=== PATIENT | male | born 1955 | race Two or more races ===

== ENCOUNTER → 2022-10-23 | Outpatient (CLI) | payer OTHER ==
--- NOTE | 2022-10-25 15:44 | PE ---
EXAMINATION TYPE: PET CT fusion skull to thigh DATE OF EXAM: 10/23/2022 CLINICAL INDICATION:Male, 67 years old with history of R91.8; TECHNIQUE: Following the intravenous administration of 12.45 mCi of F-18 FDG, whole body images are performed from the skull base to the midthigh. Images are reviewed on the computer in the coronal, axial, and sagittal planes. Reconstructed rotating images are created on independent workstation and reviewed on the computer. A non-contrast CT is performed in conjunction with the PET scan. Glucose level 96 mg/dL COMPARISON: CT 09/27/2022, PET/CT None, FINDINGS: Mediastinal SUV mean is 1.0. Hepatic parenchyma SUV mean is 1.8. SKULL BASE AND NECK: No suspicious radiotracer activity. CHEST, MEDIASTINUM, AND HILAR REGION: * Right lower lobe posterior pulmonary nodule measuring 1.4 x 1.4 cm , previously 1.2 x 1.2 cm with spiculated borders may be mildly increased in size and max SUV 2.1 * No other suspicious areas of abnormal FDG activity within the thorax. ABDOMEN AND PELVIS: No suspicious radiotracer activity. OSSEOUS STRUCTURES: No suspicious radiotracer activity. OTHER CT: Atherosclerosis of the arterial vasculature including at the carotid bifurcations and coron andrés arteries. There is apical pleural scarring present. Mild centrilobular emphysema changes are pres ent throughout the lungs. There is a moderate hiatal hernia present. Small splenule is present. Scatt ered colonic diverticula are present. Fat-containing inguinal hernias. IMPRESSION: Right lower lobe FDG avid spiculated pulmonary nodule compatible with primary pulmonary malignancy. N o evidence for metastatic disease at this time.
== END | disposition home or self-care (01) ==
LOC: RADPETMAIN 13:57
PROVIDERS: ATTEND Physician Assistant
DX: R91.8 Other nonspecific abnormal finding of lung field (principal)
CPT/HCPCS: 78815; A9552

== ENCOUNTER 2022-12-10 10:09 | Day surgery (SDC) | payer OTHER ==
[~2022-12-10 10:09] MED LIST: LACTATED RINGERS 1,000 ML IV SCH
[2022-12-10] MEDS ORDERED: ONDANSETRON 4 MG/2 ML VIAL ONE (11:04)
[2022-12-10 11:12] LABS: Glucose,Whole Blood 112 mg/dL (70-110)
[2022-12-10] MEDS ORDERED: ONDANSETRON 4 MG/2 ML VIAL IVP ONE (11:12)
[2022-12-10] MEDS ORDERED: DEXAMETHASONE SOD PHOSPHATE 4 MG/ML 1 ML VIAL IVP ONE (11:13)
--- NOTE | 2022-12-10 12:25 | CT ---
EXAMINATION TYPE: CT chest wo con DATE OF EXAM: 12/10/2022 COMPARISON: 10/23/2022 HISTORY: pre-op bronch CT DLP: 223.4 mGycm. Automated Exposure Control for Dose Reduction was Utilized. TECHNIQUE: CT scan of the thorax is performed without IV contrast. FINDINGS: LUNGS: Biapical pleural thickening 1.2 cm calcification sinus changes. Subpleural nodule measuring 5. Calcified granuloma left upper lobe measuring 4 mm. There is a spiculated mass superior segment right lower lobe posteriorly measuring 1.5 x 1.2 cm. No pneumothorax or pleural effusion. No focal pneumonia. There is a 2 mm subpleural nodule left lower lobe axial image 243 MEDIASTINUM: Lack of IV contrast is noted to limit evaluation for mediastinal and especially hilar ad enopathy. There are no definitive greater than 1 cm hilar or mediastinal lymph nodes. No cardiomega ly or pericardial effusion is seen. Coronary artery calcification noted. Aortic root measures 3.5 cm. Atherosclerotic change of the aorta. OTHER: Hypertrophic degenerative changes in the spine.. IMPRESSION: 1. Persistent spiculated 1.5 cm mass superior segment right lower lobe peripheral based suspicious fo r malignancy. 2. Large hiatal hernia. 3. Moderate centrilobular emphysema.
[2022-12-10] MEDS ORDERED: GLYCOPYRROLATE 0.2 MG/ML 2 ML VIAL ONE (12:35)
[2022-12-10] MEDS ORDERED: PHENYLEPHRINE-0.9% NACL SYG 1,000 MCG/10 ML SYRINGE ONE (12:35)
[2022-12-10] MEDS ORDERED: ROCURONIUM 10 MG/ML (5 ML VIAL) IV ONE (12:35)
[2022-12-10] MEDS ORDERED: PROPOFOL 10 MG/ML 20 ML VIAL IV ONE (12:35)
[2022-12-10] MEDS ORDERED: NEOSTIGMINE 1 MG/ML 10 ML VIAL ONE (12:35)
[2022-12-10] MEDS ORDERED: MIDAZOLAM 2 MG/2 ML VIAL ONE (12:35)
[2022-12-10] MEDS ORDERED: fentaNYL (PF) 50 MCG/ML 2 ML AMP ONE (12:35)
--- NOTE | 2022-12-10 13:48 | P.PCN ---
Date of Procedure: 12/10/22 Operative Findings: Preoperative Diagnosis: Right lower lobe mass Postoperative Diagnosis: Right lower lobe mass No mediastinal lymphadenopathy on EBUS Procedure(s) Performed: Flexible bronchoscopy Robotic-assisted bronchoscopy and addition to radial ultrasound evaluation of the lung mass Robotic-assisted test monitor needle aspirate, transbronchial biopsies, transbronchial brushing of the right lower lobe mass in addition to a bronchioloalveolar lavage Endobronchial ultrasound Endobronchial ultrasound-guided Anesthesia: SHASHAA Surgeon: Paula Gonzales Estimated Blood Loss (ml): 0 Pathology: other Condition: stable Disposition: same day Operative Findings: A physical exam was performed. Informed consent was obtained from the patient after explaining all the risks (pneumothorax, life threatening bleeding, infection and adverse effects due to medications), benefits and alternatives to the procedure which the patient appeared to understand and so stated. The patient was connected to the monitoring devices. General anesthesia was induced and the patient was intubated by anesthesia. A final timeout was performed and the procedure confirmed by the attending staff bronchoscopist. The bronchoscope was inserted and the airway examined. The flexible bronchoscope was removed and the robotic bronchoscope was inserted. Registration was completed. I next guided the robotic bronchoscope using the navigation system into the right lower lobe posterior segment segment. Once in proper position, the bronchoscope was frozen. The radial EBUS probe was placed through the bronchoscope and confirmed abnormal u/s images vs normal lung. A needle was placed through the working channel and under fluoroscopic guidance, we sampled the area thought to have the mass twice. We then used a cloud biopsy pattern with ultrasound confirmation for 4 additional passes with the needle. U/S evaluation was then used to reconfirm location. Forceps were next introduced through working channel and extended the appropriate distance and 3 transbronchial biopsies were performed using fluoroscopic guidance. The u/s probe was then reinserted to confirm location. When confirmed this process was repeated for a total of 6 transbronchial biopsies. After reassessment with EBUS, a brush was placed through the extendable working channel for 1 pass with fluoroscopic guidance. U/S evaluation was then used to confirm location. 20ml of saline was then instilled into the area of the lesion. The robotic bronchoscope was removed and the airway inspected with a flexible bronchoscope and 10 ml of effluent from the BAL was collected. The flexible bronchoscope was removed and the EBUS-TBNA bronchoscope was used to intubate the pateint through the ETT. An ultrasound examination identified all major landmarks was completed.. The EBUS-TBNA scope was used to evaluate mediastinal lymphadenopathy. All of the mediastinal stitches were examined. There was no enlarged lymph nodes and all of the lymph nodes was identified were less than 5 mm in size. As such, no biopsies were obtained. FINDINGS: 1.The airways appeared normal 2 Successful navigation, ultrasonographic identification, and biopsies of right lower lobe mass 3.The EBUS view was (Concentric/Eccentric)}. RECOMMENDATIONS: Await pathology and cytology results The referring physician will be alerted to the results when available. The patient was advised to follow up with the referring physician with the biopsy results Patient will be called with results.
[2022-12-10 13:51] VITALS: TEMP 98.6
--- NOTE | 2022-12-10 14:14 | XR ---
EXAMINATION TYPE: XR chest 1V DATE OF EXAM: 12/10/2022 COMPARISON: NONE HISTORY: Postbiopsy TECHNIQUE: Single frontal view of the chest is obtained. FINDINGS: There is no focal air space opacity, pleural effusion, or pneumothorax seen. The cardiac silhouette size is within normal limits. The osseous structures are intact. Lower lobe mass not as well-seen on x-ray and CT scan. Calcified nodule left lung apex. IMPRESSION: No pneumothorax.
--- NOTE | 2022-12-10 14:28 | FL ---
EXAMINATION TYPE: FL bronchoscopy DATE OF EXAM: 12/10/2022 COMPARISON: NONE HISTORY: Pulmonary nodule TECHNIQUE: Fluoroscopy. FINDINGS: Fluoroscopic guidance was provided during procedure Total dose area product (DAP) in mGy*c m? (or similar): 0.89562. IMPRESSION: As Above.
[2022-12-10] MEDS ORDERED: IV FLUID CONTINUATION 800 ML IV ONE (14:34)
[2022-12-10 14:44] VITALS: RESP 16
[2022-12-10 15:18] VITALS: BP 169/92; PULSE 79
== END 2022-12-10 15:04 | disposition home or self-care (01) ==
LOC: ORWHC2ENDO 10:09
PROVIDERS: ATTEND Internal Medicine Critical Care Medicine
DX: C34.31 Malignant neoplasm of lower lobe, right bronchus or lung (principal); I10 Essential (primary) hypertension; J44.9 Chronic obstructive pulmonary disease, unspecified; F12.90 Cannabis use, unspecified, uncomplicated; Z79.899 Other long term (current) drug therapy
CPT/HCPCS: 88108; 88305; 88342; 88341; 71045; 71250; 31628; 31629; 31623; 31624; 31652; J2250; J1100; J2710; J2405; J3010; J2370; J2704

== ENCOUNTER → 2023-01-27 | Outpatient (CLI) | payer OTHER ==
[~2023-01-27] MED LIST changes: -LACTATED RINGERS 1,000 ML IV SCH; +REGADENOSON 0.4 MG/5 ML SYRINGE IV PRN
--- NOTE | 2023-01-27 10:58 | NM ---
EXAMINATION TYPE: NM stress lexiscan cardiolite DATE OF EXAM: 01/27/2023 COMPARISON: NONE CLINICAL INDICATION: Male, 67 years old with history of I10 Z01.818; TECHNIQUE: After the intravenous administration of 9.8 mCi Tc 99m Sestamibi - Cardiolite resting SPE CT images acquired 45 minutes post injection. The patient received 0.4mg Lexiscan, 25.0 mCi Tc 99m Sestamibi - Stress images obtained [address] injection FINDINGS: Review of stress and rest SPECT images demonstrates no distinct perfusion abnormality. Gated analysi s shows normal wall motion with an estimated left ventricular ejection fraction of 67 %. IMPRESSION: No scintigraphic evidence for reversible ischemia.
--- NOTE | 2023-01-27 12:50 | CA ---
Lexiscan Nuclear Stress Test Report Name: Rickey Centeno Exam Date: 01/27/2023 09:36 Exam Location: [place] Stress Ht (in): 67 Wt (lb): 130 BSA: 1.68 Ordering Phys: Ariel Gallego MD Referring Phys: ALEXANDER GALLEGO,, Technologist: Onofre Damon Age: 67 Gender: M : 1955 Procedure CPT: Indications: I10 Z01.818 ICD-10 Codes: Patient History: Medications: HYDROCODONE, LISINOPRIL Meds past 24 hrs: Pretest Chest Pain: STRESS TEST Lexiscan Protocol Exercise Duration (min:sec): 02:[address] Depressions (mm): Angina Score: Aguero Score: Resting HR (bpm): 76 Peak HR (bpm): 130 Resting BP (mmHg): 158 / 97 Peak BP (mmHg): 180 / 86 MPHR: 153 Target HR: 130 % MPHR: 85 METS: 1.0 Total Dose: Peak Dose: Atropine: Double Product: 13566 BP Response: Stress Termination: PROTOCOL COMPLETE Stress Symptoms: NO SYMPTOMS Stress Summary: ECG ANALYSIS Resting ECG: Stress ECG: CONCLUSIONS At baseline EKG showed normal sinus rhythm, normal axis, no significant ST or T wave abnormalities. Patient recieved IV infusion of Lexiscan 0.4mg and at peak infusion EKG showed no significant change from baseline. Conclusions: 1. Normal EKG response to Lexiscan infusion 2. Nuclear imaging to be reported separately. Dr. Yao Elizondo DO (Electronically Signed) Final Date: 27 January 2023 12:49
== END | disposition home or self-care (01) ==
LOC: RADNMMAIN 07:54
PROVIDERS: ATTEND Thoracic Surgery (Cardiothoracic Vascular Surgery)
DX: Z01.818 Encounter for other preprocedural examination (principal); I10 Essential (primary) hypertension
CPT/HCPCS: 93017; 78452; A9500; J2785

== ENCOUNTER → 2023-02-01 | Outpatient (CLI) | payer OTHER ==
[2023-02-01 14:46] LABS: INR 0.9 (<1.2); Partial Thromboplastin Time 22.5 sec (22.0-30.0); Prothrombin Time 9.6 sec (9.0-12.0)
[2023-02-01 20:13] LABS: Basophils % (A) 1.3 %; Eosinophils # (A) 0.13 X 10*3/uL (0.04-0.35); Eosinophils % (A) 1.7 %; HCT 44.9 % (39.6-50.0); HGB 15.3 d/dL (12.0-15.0); Lymphocytes # (A) 1.61 X 10*3/uL (0.90-5.00); Lymphocytes % (A) 20.7 %; MCH 34.5 pg (27.0-32.0); MCHC 34.1 d/dL (32.0-37.0); MCV 101.4 FL (80.0-97.0); Mean Platelet Volume 10.8 FL (9.5-12.2); Monocytes # (A) 0.73 X 10*3/uL (0.20-1.00); Monocytes % (A) 9.4 %; NRBC Per 100 WBC 0 X 10*3/uL (0.00-0.01); Neutrophils # (A) 5.18 X 10*3/uL (1.80-7.70); Neutrophils % (A) 66.6 %; Platelet Count 290 X 10*3/uL (140-440); RBC 4.43 X 10*6/uL (4.40-5.60); RDW 12.6 % (11.5-14.5); WBC 7.77 X 10*3/uL (4.50-10.00)
[2023-02-01 21:00] LABS: Blood Urea Nitrogen 9.1 mg/dL (9.0-27.0); Carbon Dioxide 23.2 mmol/L (21.6-31.8); Chloride 101 mmol/L (96-109); Glucose 104 mg/dL (70-110); Potassium 4.6 mmol/L (3.5-5.5); Sodium 139 mmol/L (135-145)
[2023-02-01 21:52] LABS: Appearance,Urine Clear (Clear); Bilirubin,Urine Negative (Negative); Blood,Urine Negative (Negative); Color,Urine Yellow (Yellow); Ketones,Urine Negative (Negative); Nitrite,Urine Negative (Negative); Specific Gravity,Urine 1.009 (1.001-1.030); Urobilinogen,Urine 0.2 E.U./DL
== END | disposition home or self-care (01) ==
LOC: LABPAT 13:58
PROVIDERS: ATTEND Thoracic Surgery (Cardiothoracic Vascular Surgery)
DX: Z01.812 Encounter for preprocedural laboratory examination (principal); Z51.81 Encounter for therapeutic drug level monitoring; C34.31 Malignant neoplasm of lower lobe, right bronchus or lung; E86.0 Dehydration; Z79.899 Other long term (current) drug therapy; R58 Hemorrhage, not elsewhere classified; R06.00 Dyspnea, unspecified
CPT/HCPCS: 36415; 80051; 81003; 82565; 82947; 84520; 85025; 85610; 85730; 87086; 93005

== ENCOUNTER 2023-02-03 09:40 | Inpatient (IN) | payer OTHER ==
[~2023-02-03 09:40] MED LIST changes: +DEXAMETHASONE SOD PHOSPHATE 4 MG/ML 1 ML VIAL IV ONE; +LACTATED RINGERS 1,000 ML IV SCH; +LIDOCAINE 1% (10MG/ML) FOR IV START INTRADERMA PRN; +ONDANSETRON 4 MG/2 ML VIAL IVP ONE; -REGADENOSON 0.4 MG/5 ML SYRINGE IV PRN; +droPERidol 5 MG/2 ML VIAL IVP ONE
[2023-02-03] MEDS ORDERED: MIDAZOLAM 2 MG/2 ML VIAL IVP ONE ×2 (11:09→11:31)
--- NOTE | 2023-02-03 11:53 | P.ANPRN ---
Procedure Note - Anesthesia - Nerve Block Performed Right Erector Spinae Single Time Out Performed: Yes Date of Procedure: 02/03/23 Procedure Start Time: 11:08 Procedure Stop Time: 11:14 Location of Patient: PreOp Indication: Acute Post-Operative Pain, Requested by Surgeon Sedation Type: Sedate with meaningful contact maintained Preparation: Sterile Prep Position: Prone Needle Types: Pajunk Needle Gauge: 21 Ultrasound used to visualize needle placement: Yes Ultrasound used to observe medication spread: Yes Blood Aspirated: No Pain Paresthesia on Injection Noted: No Resistance on Injection: Normal Image Stored and Saved: Yes Events: Uneventful and Well Tolerated (10.5% 15 mL plus normal saline 10 mL plus dexamethasone 4 mg given at T6)
--- NOTE | 2023-02-03 11:54 | P.ANPRN ---
Procedure Note - Anesthesia - Invasive Line Left Arterial Line Time Out Performed: Yes Date of Procedure: 02/03/23 Time of Procedure: 11:37 Location of Patient: PreOp Preparation: Sterile Prep Arterial Line Location: Radial Ultrasound Used: No Purpose - Visualization and Identification of Vasculature: No Image Stored and Saved: No Narrative: Central line placement per sterile protocol utilized.
[2023-02-03] MEDS ORDERED: LIDOCAINE 2% INJ 20 MG/ML (2 ML VIAL) ONE (12:25)
[2023-02-03] MEDS ORDERED: METOPROLOL TARTRATE 5 MG/5 ML VIAL IVP ONE (12:25)
[2023-02-03] MEDS ORDERED: ROCURONIUM 10 MG/ML (5 ML VIAL) IV ONE (12:25)
[2023-02-03] MEDS ORDERED: PROPOFOL 10 MG/ML 20 ML VIAL IV ONE (12:25)
[2023-02-03] MEDS ORDERED: GLYCOPYRROLATE 0.2 MG/ML 2 ML VIAL ONE (12:25)
[2023-02-03] MEDS ORDERED: ESMOLOL 100 MG/10 ML VIAL ONE (12:25)
[2023-02-03] MEDS ORDERED: fentaNYL (PF) 50 MCG/ML 2 ML AMP ONE (12:25)
[2023-02-03] MEDS ORDERED: PHENYLEPHRINE-0.9% NACL SYG 1,000 MCG/10 ML SYRINGE ONE (12:25)
[2023-02-03] MEDS ORDERED: HYDROmorphone (PF) 1 MG/ML ONE (12:25)
[2023-02-03] MEDS ORDERED: MIDAZOLAM 2 MG/2 ML VIAL ONE (12:25)
[2023-02-03] MEDS ORDERED: NEOSTIGMINE 1 MG/ML 10 ML VIAL ONE (12:25)
[2023-02-03] MEDS ORDERED: SODIUM CHLORIDE 0.9% (PF) 10 ML VIAL ONE (12:25)
[2023-02-03] MEDS ORDERED: ROPIVACAINE 5 MG/ML 30 ML VIAL ONE (12:25)
[2023-02-03] MEDS ORDERED: SUCCINYLCHOLINE CHLORIDE 200 MG/10 ML VIAL IV ONE (12:25)
[2023-02-03] MEDS ORDERED: DEXAMETHASONE SOD PHOSPHATE 4 MG/ML 1 ML VIAL ONE (12:25)
[2023-02-03] MEDS ORDERED: BUPIVACAINE (PF) 0.5% 30 ML VIAL SQ ONE ×3 (12:29)
[2023-02-03] MEDS ORDERED: LACTATED RINGERS 1,000 ML IV ONE ×2 (13:00→13:05)
--- NOTE | 2023-02-03 17:13 | P.OP ---
Date of Procedure: 02/03/23 Preoperative Diagnosis: Lung Cancer Postoperative Diagnosis: Same Procedure(s) Performed: 1. Bronchoscopy 2. Robotic assisted right thorascopic surgery with right lower lobectomy 3. Mediastinal lymph node dissection Anesthesia: JERZY Surgeon: Ariel Gallego Reviewer Sales #1: Christopher Singer Pathology: none sent (RLL, LN stations 4,10,11,7 and 8) Condition: stable Disposition: PACU Indications for Procedure: Mr Centeno is a 67 year-old male who is a smoker who was noted to have a lung nodule on a cxr done by his PCP at the [facility]. Camejo. Further work-up revealed a 1.5cm nodule on CT scan which was also FDG avid on PET/CT. EBUS with biopsy revealed adenocarcinoma. Mediastinum was clinically negative and he had adequate PFT's. I recommended lobectomy. Operative Findings: Lymph nodes stations 4, 7, 8, 10 and 11 harvested. Tumor somewhat central in the lower lobe. Description of Procedure: The patient underwent left radial arterial line placement in the pre-operative suite. He was brought back to the operating room and placed on the table in the supine position. He was intubated with a 39F left sided KATY which was confirmed with bronchoscopy. A diagnostic bronchoscopy was also performed which revealed no lesions or abnormalities in the entire tracheo-bronchial tree. There was minimal to no secretions. The patient was then positioned in the left lateral decubitus position and her right chest was prepped and draped in the usual sterile fashion. The double lumen tube position was once again checked using bronchoscopy. A time-out was performed and antibiotics were given. The right lung was isolated. We made a 1cm incision in the 9th intercostal space anterior axillary line. The 8mm trocar was inserted into the chest bluntly. The robotic camera was inserted and there was no injury to the lung and there was good lung isolation. We placed then placed 12mm trocars 10cm anteriorly and 10cm posteriorly in the 9th intercostal space. A 4th 8mm port was placed posteriorly in the 8th ICS posteriorly. We placed a 15mm business assistant port in between ports 1 and 2 10th ICS above the diaphragm. The Da Bebeto Xi robot was then docked. We then approached the fissure and performed some dissection along the inter-lobar fissure using the bipolar cautery. The pulmonary arterial plane was dissected out. Attention was then turned towards the inferior pulmonary ligament which was taken down using the bipolar cautery. This dissection was carried upward with the bipolar cautery posteriorly and anteriorly along the mediastinal pleura. Posteriorly we obtained level 8 and 7 lymph nodes. There was no discernable level 9 nodes. At this point, R4 node was taken above the azygous vein. I then turned my attention to the inferior pulmonary vein which was circumferentially dissected free and encircled with a vessel loop. The robotic white load stapler was fired across the vein. The 11 node was harvested at this time. Next, the bronchus to the lower lobe was circumferentially dissected away from the middle lobe bronchus, encircled with a vessel loop and stapled using the robotic green load. then encircled the anterior minor fissure above the IPV and in front of the on-going PA with a vessel loop. A robotic blue load was fired across the anterior fissure. At this point, the on-going pulmonary artery was dissected free, encircled and stapled using the robotic white load x 2. Lastly, the posterior fissure was completed using two firings of the robotic blue load. The level 10 node was harvested beneath the azygous vein. The lung was placed in a retrieval bag, and the right chest was irrigated with water and a leak test on the bronchus was performed which was negative. The robot was undocked, the specimen was removed from the chest cavity and a 28F chest tube was placed via the most anterior incision. All incisions were closed in layers and the patient was awaken from anesthesia and extubated.
[2023-02-03] MEDS: HYDROmorphone 0.5 MG/0.5 ML SYRINGE IVP PRN ×2 (17:31→17:46)
[2023-02-03] MEDS ORDERED: DEXTROSE 5%-0.45% NACL 1,000 ML IV SCH (17:42)
[2023-02-03] MEDS ORDERED: ACETAMINOPHEN TAB 325 MG TAB PO PRN (17:42)
[2023-02-03] MEDS ORDERED: ONDANSETRON 4 MG/2 ML VIAL IVP PRN (17:42)
[2023-02-03] MEDS ORDERED: IPRATROPIUM-ALBUTEROL 3 ML NEB IH PRN (17:42)
--- NOTE | 2023-02-03 17:46 | XR ---
EXAMINATION TYPE: XR chest 1V portable DATE OF EXAM: 02/03/2023 HISTORY: Status post lobectomy COMPARISON: 12/10/2022 TECHNIQUE: Single view of the chest is submitted. FINDINGS: Postsurgical changes of right-sided lobectomy with right-sided chest tube in place. Pleural parenchym al density seen at the right lung base. No sizable pneumothorax. Subcutaneous air along the lower rig ht chest wall. There is no evidence for focal infiltrate. The heart is stable. Hilar and mediastinal structures are within normal limits. Degenerative changes are seen of the dorsal spine. IMPRESSION: 1. Postoperative changes as discussed
[2023-02-03] MEDS ORDERED: LABETALOL SYRINGE 5 MG/ML IVP ONE (18:28)
[2023-02-03] MEDS: KETOROLAC 15 MG/ML 1 ML VIAL IVP SCH ×2 (18:28→23:51)
[2023-02-03] MEDS: IPRATROPIUM-ALBUTEROL 3 ML NEB IH SCH (20:08)
[2023-02-03] MEDS: HYDROcodone/APAP 10-325MG 1 EACH TAB PO PRN (20:37)
[2023-02-03] MEDS: HEPARIN SODIUM,PORCINE/PF 5,000 UNIT/0.5 ML SYRINGE SQ SCH (23:51)
--- NOTE | 2023-02-04 00:59 | P.CNPUL ---
History of Present Illness Consult date: 02/04/23 Requesting physician: [facility] Reason for consult: other (post right lower lobectomy) Chief complaint: right lower lobe pulmonary adenocarcinoma History of present illness: I am seeing this patient in new consultation today 02/04/2023 status postoperative day #1 following a right lower lobectomy and mediastinal lymph node dissection. Patient is a 67-year-old white male with past medical history significant for recent diagnosis of right lower lobe adenocarcinoma, COPD, recent ex-smoker and over a 45 pack-year smoking history, hypertension, and osteoarthritis. The patient normally follows with the [facility]. He had a low-dose lung CT back in September, which showed a concerning 1.5 centimeter spiculated nodule in the posterior right mid lung. A follow-up PET scan demonstrated a right lower lobe 1.4 cm nodule with increased FDG uptake. No evidence of metastatic disease at that time. This was followed by a navigational bronchoscopy and biopsy of the nodule, on 12/10/2022, which was consistent with adenocarcinoma. In the absence of significant mediastinal lymphadenopathy, no mediastinal lymph node biopsies were obtained at that time. The patient was referred to cardiothoracic, who scheduled a right lower lobectomy yesterday. Preoperative PFT showed minimal airway obstruction with an FEV1 76% of predicted and a moderate to severely reduced DLCO at 48% of predicted. The patient underwent successful robotic-assisted right lower lobectomy and mediastinal lymph node dissection yesterday. He is currently sitting up in bed, on 2 L nasal cannula, in no acute distress. Right chest tube has 70 ML's of serosanguineous output. There is a minimal air leak observed with coughing. The chest tube is to suction. Postoperative chest x-ray shows postsurgical changes and a right- sided chest tube in place. No sizable pneumothorax appreciated. There is minimal subcutaneous air along the right lower chest wall. Incentive spirometer is at bedside, the patient achieves 750-1000 ML's with encouragement. Pain is reportedly well controlled. Preoperative labs were unremarkable. Vital signs are stable. Patient is being monitored on the cardiac stepdown unit. Review of Systems REVIEW OF SYSTEMS: CONSTITUTIONAL: Denies any recent significant weight loss or weight gain. EYES: Denies change in vision. EARS, NOSE, MOUTH, THROAT: Denies headaches, denies sore throat. CARDIOVASCULAR: Denies palpitations or syncopal episodes. Admits postsurgical chest pain, especially with coughing and deep breathing RESPIRATORY: Denies shortness of breath, cough, congestion or hemoptysis. GASTROINTESTINAL: Denies change in appetite, abdominal pain, nausea and vomiting, or diarrhea GENITOURINARY: Denies hematuria, denies infections. MUSKULOSKELETAL: Denies pain, denies swelling. INTEGUMENTARY: Denies rash, denies eczema. NEUROLOGICAL: Denies recent memory loss, no recent seizure activity. PSYCHIATRIC: Denies anxiety, denies depression. HEMATOLOGIC/LYMPHATIC: Denies anemia, denies enlarged lymph node Past Medical History Past Medical History: Cancer, Hypertension, Musculoskeletal Disorder, Osteoarthritis (OA) Additional Past Medical History / Comment(s): new dx. lung cancer, emphysema, intermittent vertigo-seeing neuro for testing, neck & knee pain History of Any Multi-Drug Resistant Organisms: None Reported Past Surgical History: Hernia Repair, Tonsillectomy Additional Past Surgical History / Comment(s): darcy inguinal hernia, colonoscopy, recent bronchoscopy Past Anesthesia/Blood Transfusion Reactions: No Reported Reaction Smoking Status: Former smoker - Past Family History Father Additional Family Medical History / Comment(s): sepsis Mother Additional Family Medical History / Comment(s): poor circulation in legs lost toes Brother(s) Additional Family Medical History / Comment(s): leukemia from agent [place] Medications and Allergies Home Medications Medication Instructions Recorded Confirmed Type HYDROcodone/APAP 10-325MG [Baker 1 tab PO Q6HR PRN 12/08/22 01/29/23 History 10-325] Unk Wixela 1 puff INHALATION BID 12/08/22 01/29/23 History lisinopriL [Zestril] 10 mg PO DAILY 12/08/22 01/29/23 History Allergies Allergy/AdvReac Type Severity Reaction Status Date / Time No Known Allergies Allergy Verified 02/03/23 10:00 Physical Exam Vitals: Vital Signs Temp Pulse Resp BP BP BP Pulse Ox 02/03/23 20:00 98.1 F 88 16 151/89 99 02/03/23 19:14 97.8 F 92 18 155/90 180/100 97 02/03/23 18:48 160/82 02/03/23 18:45 159/83 02/03/23 18:40 74 16 149/90 100 02/03/23 18:20 79 16 179/90 100 02/03/23 18:05 85 16 172/94 100 02/03/23 17:49 74 16 168/90 100 02/03/23 17:34 73 16 178/91 99 02/03/23 17:19 76 16 169/92 99 02/03/23 17:04 97 F L 114 H 16 189/104 178/100 100 02/03/23 11:51 86 16 127/89 98 02/03/23 10:07 98.8 F 79 16 166/92 98 Intake and Output 02/03/23 02/03/23 02/04/23 14:59 22:59 06:59 Intake Total 2950 150 Output Total 50 1999 Balance 2900 -1850 Intake: IV 2950 150 Output: Urine 1999 Estimated Blood Loss 50 Other: Voiding Method Indwelling Catheter Weight 59.5 kg GENERAL EXAM: Alert, 67-year-old white male, comfortable in no apparent distress. HEAD: Normocephalic and atraumatic EYES: Normal reaction of pupils, equal size. NOSE: Clear with pink turbinates. THROAT: No erythema or exudates. NECK: No masses, no JVD. CHEST: No chest wall deformity. Right sided chest tube to suction LUNGS: Equal air entry with minimal wheezing and rhonchi. no crackles or focal dullness. on 2 L/m nasal cannula. No conversational dyspnea or accessory muscle use.. CVS: S1 and S2 normal with no audible murmur, regular rhythm. No extra heart sounds ABDOMEN: No hepatosplenomegaly, active bowel sounds, no guarding or rigidity. SPINE: No scoliosis or deformity SKIN: No rashes CENTRAL NERVOUS SYSTEM: No focal deficits, tone is normal in all 4 extremities. EXTREMITIES: There is no peripheral edema, clubbing, or cyanosis. Peripheral pulses are intact. Results - Diagnostic Findings Chest x-ray: image reviewed Assessment and Plan Assessment: Right lower lobe pulmonary adenocarcinoma status postoperative day #1 following a robotic-assisted right lower lobectomy and mediastinal lymph node dissection. Postoperative chest x-ray shows postsurgical changes and a right-sided chest tube in place. No sizable pneumothorax appreciated. There is minimal subcutaneous air along the right lower chest wall. Chronic obstructive pulmonary disease, normally maintained on a combination of Wixela and when necessary albuterol on an outpatient basis Acute hypoxemic respiratory failure, secondary to above, on 2 L/m nasal cannula Benign essential hypertension osteoarthritis ex-smoker, quitting 3 weeks ago, [id number] history plan: Patient's medications, labs, chest x-ray reviewed Continue supplemental oxygen Start patient on combination of Symbicort and when necessary Duo-nebs Right-sided chest tube with minimal air leak on coughing. Chest tube is to suction. Postoperative chest x-ray shows no sizable pneumothorax Encourage incentive spirometer Repeat chest x-ray in the morning Pain is reportedly well managed No evidence of metastasis on recent PET scan Lymph node cytology is pending Heparin for DVT prophylaxis Protonix for GI prophylaxis We will continue to follow I have personally seen and examined the patient, performed the documentation and the assessment and plan as written. Number of minutes spent on the visit:20 Time with Patient: Greater than 30
[2023-02-04] MEDS: KETOROLAC 15 MG/ML 1 ML VIAL IVP SCH ×4 (05:34→23:59)
[2023-02-04] MEDS: PANTOPRAZOLE 40 MG TABLET PO SCH (05:36)
--- NOTE | 2023-02-04 07:02 | XR ---
EXAMINATION TYPE: XR chest 1V DATE OF EXAM: 02/04/2023 6:37 AM COMPARISON: Chest radiographs from 02/03/2023 TECHNIQUE: XR chest 1V Portable AP radiograph of the chest. CLINICAL INDICATION:Male, 67 years old with history of post lobectomy; FINDINGS: Lungs/Pleura: Postsurgical changes of right-sided lobectomy. No sizable pneumothorax. No pleural effu matt or focal consolidation. Pulmonary vascularity: Unremarkable. Heart/mediastinum: Cardiomediastinal silhouette is unremarkable. Musculoskeletal: No acute osseous pathology. Other findings: Decreased right chest wall subcutaneous emphysema. Lines/Tubes: Stable position of right-sided chest tube with tip directed towards the apex. IMPRESSION: Postsurgical changes from right sided lobectomy with chest tube in place. No sizable pneumothorax.
[2023-02-04] MEDS ORDERED: LORazepam 2 MG/ML INJ IV PRN ×3 (07:44)
--- NOTE | 2023-02-04 07:48 | P.PN ---
Subjective Progress Note Date: 02/04/23 Principal diagnosis: Lung cancer, adenocarcinoma. History of previous tobacco dependence, COPD, hypertension, osteoarthritis, vertigo, daily EtOH use, occasional marijuana use POD #1 bronchoscopy, robotic-assisted right thoracoscopic surgery with right lower lobectomy, mediastinal lymph node dissection The patient was seen and examined sitting up in bed eating breakfast on the cardiac stepdown unit in no acute distress. States pain is mostly controlled with current medication regimen, denies shortness of breath. Remains in sinus rhythm, currently on 2 L nasal cannula with oxygen saturation in the high 90s. Right pleural chest tube present to continuous wall suction, no air leak present this morning. Chest x-ray reviewed. No other new concerns. Objective - Vital Signs Vital signs: Vital Signs Temp 98.9 F 02/04/23 04:00 Pulse 77 02/04/23 04:00 Resp 16 02/04/23 04:00 BP 114/69 02/04/23 04:00 Pulse Ox 98 02/04/23 04:00 FiO2 Intake & Output 02/03/23 02/04/23 02/04/23 18:59 06:59 18:59 Intake Total 3100 450 Output Total 2050 520 Balance 1050 -70 Weight 59.5 kg 59 kg Intake: IV 3100 Intake, IV Titration 450 Amount Dextrose 5%-0.45% NaCl 1, 400 000 ml @ 50 mls/hr IV . Q20H CODEY Rx#:[id number] ceFAZolin 2 gm In Sodium 50 Chloride 0.9% 50 ml @ 100 mls/hr IVPB Q8HR CODEY Rx# :[id number] Output: Chest Tube Drainage 220 Chest Tube Right Lateral 220 Chest Urine 2000 300 Estimated Blood Loss 50 Other: Voiding Method Indwelling Catheter - Exam CONSTITUTIONAL: Appears comfortable, cooperative, no acute distress RESPIRATORY: Lungs sounds diminished bilaterally. Respirations even, nonlabored. Currently on 2 L nasal cannula with oxygen saturation 98%. Able to achieve 1250 mL on incentive spirometry. Strong cough. CARDIOVASCULAR: S1, S2 present. Regular rate and rhythm, sinus rhythm on telemetry. Palpable peripheral pulses bilaterally. No edema present. No calf pain or tenderness noted. SCDs present. GASTROINTESTINAL: Abdomen soft, nontender, nondistended. Active bowel sounds present 4 quadrants. Tolerating diet. GENITOURINARY: Holt present draining clear, yellow urine INTEGUMENTARY: Skin is warm and dry with evidence of good perfusion NEUROLOGIC: Cranial nerves II through XII intact MUSKULOSKELETAL: Able to move all extremities, strength equal bilaterally, gait normal PSYCHIATRIC: Alert and oriented to person place and time, appropriate affect, intact judgment and insight INVASIVE LINES AND TUBES: Right pleural chest tube present and connected to wall suction, no air leaks present, 110 mL serosanguineous drainage overnight, 200 mL since surgery - Allied health notes Allied health notes reviewed: nursing - Imaging and Cardiology Chest x-ray: report reviewed, image reviewed Assessment and Plan Assessment: Lung cancer, adenocarcinoma, status post bronchoscopy, robotic-assisted right thoracoscopic surgery with right lower lobectomy, mediastinal lymph node dissection Previous tobacco dependence COPD, preoperative FEV1 76% of predicted, DLCO 48% of predicted Hypertension Osteoarthritis Vertigo Daily EtOH use Occasional marijuana use Plan: Pleural chest tube placed to waterseal, monitor for air leak Wean O2 as tolerated, encourage incentive spirometry use 10 times every hour while awake. Bronchodilators per pulmonology Increase activity as tolerated, out of bed for all meals Pain control with current medication regimen Will monitor daily chest x-rays Discontinue Holt catheter. May bladder scan and straight cath for greater than 300 mL residual Clinical recommendations to follow
[2023-02-04 08:02] LABS: Basophils % (A) 0 %; Eosinophils # (A) 0.1 k/uL (0-0.7); Eosinophils % (A) 1 %; HCT 39.7 % (39.0-53.0); HGB 13.3 gm/dL (13.0-17.5); Lymphocytes # (A) 1.2 k/uL (1.0-4.8); Lymphocytes % (A) 9 %; MCH 34.7 pg (25.0-35.0); MCHC 33.4 g/dL (31.0-37.0); MCV 103.9 fL (80.0-100.0); Macrocytosis Slight; Mean Platelet Volume 9.6; Monocytes # (A) 0.8 k/uL (0-1.0); Monocytes % (A) 6 %; Neutrophils # (A) 11.4 k/uL (1.3-7.7); Neutrophils % (A) 84 %; Platelet Count 224 k/uL (150-450); RBC 3.82 m/uL (4.30-5.90); RDW 12.1 % (11.5-15.5); WBC 13.5 k/uL (3.8-10.6)
[2023-02-04] MEDS: SYMBICORT 160-4.5 MCG INHALER INHALATION SCH ×2 (08:21→20:29)
[2023-02-04] MEDS: IPRATROPIUM-ALBUTEROL 3 ML NEB IH SCH ×4 (08:22→20:29)
[2023-02-04 08:52] LABS: African American GFR (CKD) >90 (>60 ml/min/1.73 sqM); Anion Gap 6 mmol/L; Blood Urea Nitrogen 12 mg/dL (9-20); Calcium 8.7 mg/dL (8.4-10.2); Carbon Dioxide 24 mmol/L (22-30); Chloride 102 mmol/L (98-107); Glucose 162 mg/dL (74-99); Non-African American GFR(CKD) >90 (>60 ml/min/1.73 sqM); Sodium 132 mmol/L (137-145)
[2023-02-04 08:53] LABS: Potassium 4.3 mmol/L (3.5-5.1)
[2023-02-04] MEDS: lisinopriL 10 MG TAB PO SCH (08:57)
[2023-02-04] MEDS: FOLIC ACID 1 MG TAB PO SCH (08:57)
[2023-02-04] MEDS: HEPARIN SODIUM,PORCINE/PF 5,000 UNIT/0.5 ML SYRINGE SQ SCH ×3 (08:57→23:59)
[2023-02-04] MEDS: HYDROcodone/APAP 10-325MG 1 EACH TAB PO PRN ×3 (08:57→22:12)
[2023-02-04] MEDS: MULTIVITAMINS, THERA 1 EACH TAB PO SCH (08:57)
[2023-02-05] MEDS: KETOROLAC 15 MG/ML 1 ML VIAL IVP SCH ×3 (06:24→17:41)
[2023-02-05] MEDS: PANTOPRAZOLE 40 MG TABLET PO SCH (06:25)
[2023-02-05] MEDS: HYDROcodone/APAP 10-325MG 1 EACH TAB PO PRN ×2 (07:40→21:57)
[2023-02-05] MEDS ORDERED: MAGNESIUM HYDROXIDE 2,400 MG/30 ML CUP PO STA (07:52)
--- NOTE | 2023-02-05 08:35 | XR ---
EXAMINATION TYPE: XR chest 2V DATE OF EXAM: 02/04/2023 COMPARISON: 02/04/2023 INDICATION: Lobectomy right side TECHNIQUE: Frontal and lateral views of the chest are obtained. FINDINGS: The heart size is normal. The pulmonary vasculature is normal. The lungs are clear. Right side chest tube is present. Small amount of subcutaneous emphysema is lat eral chest. No pneumothorax is evident. Some mild infiltrate may be to the right mid to lower lung fi eld IMPRESSION: 1. Suggestion of mild subsegmental atelectasis right mid to lower lung field. 2. Right side chest tube stable in position. No pneumothorax is evident.
[2023-02-05] MEDS: SYMBICORT 160-4.5 MCG INHALER INHALATION SCH ×2 (08:49→20:56)
[2023-02-05] MEDS: IPRATROPIUM-ALBUTEROL 3 ML NEB IH SCH ×4 (08:50→20:56)
--- NOTE | 2023-02-05 08:58 | P.PN ---
Subjective Progress Note Date: 02/05/23 Principal diagnosis: Lung cancer, adenocarcinoma. History of previous tobacco dependence, COPD, hypertension, osteoarthritis, vertigo, daily EtOH use, occasional marijuana use POD #2 bronchoscopy, robotic-assisted right thoracoscopic surgery with right lower lobectomy, mediastinal lymph node dissection The patient was seen and examined sitting up in a recliner on the cardiac stepdown unit in no acute distress. States pain is mostly controlled with current medication regimen, denies shortness of breath. Remains in sinus rhythm, currently on room air with oxygen saturation in the mid 90s. Right pleural chest tube [facility] to [facility], no air leak present this morning. Chest x-ray reviewed. No other new concerns. Objective - Vital Signs Vital signs: Vital Signs Temp 98 F 02/05/23 04:00 Pulse 80 02/05/23 04:00 Resp 16 02/05/23 04:00 BP 138/89 02/05/23 04:00 Pulse Ox 95 02/05/23 04:00 FiO2 Intake & Output 02/04/23 02/05/23 02/05/23 18:59 06:59 18:59 Intake Total 778 Output Total 840 1200 400 Balance -62 -1200 -400 Intake: Oral 778 Output: Chest Tube Drainage 390 400 Chest Tube Right Lateral 390 400 Chest Urine 450 1200 Other: Voiding Method Urinal Urinal - Exam CONSTITUTIONAL: Appears comfortable, cooperative, no acute distress RESPIRATORY: Lungs sounds diminished bilaterally. Respirations even, nonlabored. Currently on room air with oxygen saturation 95%. Able to achieve 750 mL on incentive spirometry. Strong cough. CARDIOVASCULAR: S1, S2 present. Regular rate and rhythm, sinus rhythm on telemetry. Palpable peripheral pulses bilaterally. No edema present. No calf pain or tenderness noted. SCDs present. GASTROINTESTINAL: Abdomen soft, nontender, nondistended. Active bowel sounds present 4 quadrants. Tolerating diet. GENITOURINARY: Continues to void INTEGUMENTARY: Skin is warm and dry with evidence of good perfusion NEUROLOGIC: Cranial nerves II through XII intact MUSKULOSKELETAL: Able to move all extremities, strength equal bilaterally, gait normal PSYCHIATRIC: Alert and oriented to person place and time, appropriate affect, intact judgment and insight INVASIVE LINES AND TUBES: Right pleural chest tube present to waterseal, no air leaks present, 400 mL serosanguineous drainage overnight, 700 mL in the last 24 hours - Allied health notes Allied health notes reviewed: nursing - Labs CBC & Chem 7: 02/04/23 07:44 02/04/23 07:44 Labs: Abnormal Lab Results - Last 24 Hours (Table) 02/04/23 Range/Units 07:44 Sodium 132 L (137-145) mmol/L Glucose 162 H (74-99) mg/dL - Imaging and Cardiology Chest x-ray: report reviewed, image reviewed Assessment and Plan Assessment: Lung cancer, adenocarcinoma, status post bronchoscopy, robotic-assisted right thoracoscopic surgery with right lower lobectomy, mediastinal lymph node dissection Previous tobacco dependence COPD, preoperative FEV1 76% of predicted, DLCO 48% of predicted Hypertension Osteoarthritis Vertigo Daily EtOH use Occasional marijuana use Plan: Will discontinue chest tube Encourage incentive spirometry use 10 times every hour while awake. Bronchodilators per pulmonology Increase activity as tolerated, out of bed for all meals Pain control with current medication regimen Will monitor daily chest x-rays More recommendations to follow
[2023-02-05] MEDS: HEPARIN SODIUM,PORCINE/PF 5,000 UNIT/0.5 ML SYRINGE SQ SCH ×2 (09:26→15:46)
[2023-02-05] MEDS: THIAMINE 100 MG TAB PO SCH (09:26)
[2023-02-05] MEDS: FOLIC ACID 1 MG TAB PO SCH (09:26)
[2023-02-05] MEDS: MULTIVITAMINS, THERA 1 EACH TAB PO SCH (09:26)
[2023-02-05] MEDS: lisinopriL 10 MG TAB PO SCH (09:26)
[2023-02-05] MEDS: SENNOSIDES-DOCUSATE SODIUM 1 EACH TAB PO SCH ×2 (09:26→21:11)
--- NOTE | 2023-02-05 14:15 | P.PN ---
Subjective Progress Note Date: 02/05/23 I am seeing this patient in new consultation today 02/04/2023 status postoperative day #1 following a right lower lobectomy and mediastinal lymph node dissection. Patient is a 67-year-old white male with past medical history significant for recent diagnosis of right lower lobe adenocarcinoma, COPD, recent ex-smoker and over a 45 pack-year smoking history, hypertension, and osteoarthritis. [facility] He had a low-dose lung CT back in September, which showed a concerning 1.5 centimeter spiculated nodule in the posterior right mid lung. A follow-up PET scan demonstrated a right lower lobe 1.4 cm nodule with increased FDG uptake. No evidence of metastatic disease at that time. This was followed by a navigational bronchoscopy and biopsy of the nodule, on 12/10/2022, which was consistent with adenocarcinoma. In the absence of significant mediastinal lymphadenopathy, no mediastinal lymph node biopsies were obtained at that time. The patient was referred to cardiothoracic, who scheduled a right lower lobectomy yesterday. Preoperative PFT showed minimal airway obstruction with an FEV1 76% of predicted and a moderate to severely reduced DLCO at 48% of predicted. The patient underwent successful robotic-assisted right lower lobectomy and mediastinal lymph node dissection yesterday. He is currently sitting up in bed, on 2 L nasal cannula, in no acute distress. Right chest tube has 70 ML's of serosanguineous output. There is a minimal air leak observed with coughing. The chest tube is to suction. Postoperative chest x-ray shows postsurgical changes and a right- sided chest tube in place. No sizable pneumothorax appreciated. There is minimal subcutaneous air along the right lower chest wall. Incentive spirometer is at bedside, the patient achieves 750-1000 ML's with encouragement. Pain is reportedly well controlled. Preoperative labs were unremarkable. Vital signs are stable. Patient is being monitored on the cardiac stepdown unit. The patient is seen today 02/05/2023 in follow-up on the selective care unit. He is currently sitting up in a chair at the bedside. Awake and alert in no acute distress. Maintaining good O2 saturations in the 90s on room air. He's working well with his incentive spirometer. Chest x-ray revealed mild subsegmen jin atelectasis in the right mid and lower lobe. Right-sided chest tube in position. No evidence of pneumothorax. His chest tube was subsequently removed today. Lung and lymph node biopsy pathology is pending at is continued on DuoNeb inhalations, Symbicort. Heparin for DVT prophylaxis. Objective - Vital Signs Vital signs: Vital Signs Temp 98.2 F 02/05/23 09:22 Pulse 82 02/05/23 12:16 Resp 18 02/05/23 11:29 BP 129/83 02/05/23 11:29 Pulse Ox 96 02/05/23 11:49 FiO2 Intake & Output 02/04/23 02/05/23 02/05/23 18:59 06:59 18:59 Intake Total 778 Output Total 840 1200 600 Balance -62 -1200 -600 Intake: Oral 778 Output: Chest Tube Drainage 390 400 Chest Tube Right Lateral 390 400 Chest Urine 450 1200 200 Other: Voiding Method Urinal Urinal Urinal # Voids 1 - Exam GENERAL EXAM: Alert, very pleasant 67-year-old male, on room air, up in a chair, comfortable in no apparent distress. HEAD: Normocephalic. EYES: Normal reaction of pupils, equal size. NOSE: Clear with pink turbinates. THROAT: No erythema or exudates. NECK: No masses, no JVD. CHEST: No chest wall deformity. Right-sided chest tube removed, dressing intact LUNGS: Equal air entry with scattered rhonchi of the right lung. CVS: S1 and S2 normal with no audible murmur, regular rhythm. ABDOMEN: No hepatosplenomegaly, normal bowel sounds, no guarding or rigidity. SPINE: No scoliosis or deformity SKIN: No rashes CENTRAL NERVOUS SYSTEM: No focal deficits, tone is normal in all 4 extremities. EXTREMITIES: There is no peripheral edema. No clubbing, no cyanosis. Peripheral pulses are intact. - Labs CBC & Chem 7: 02/04/23 07:44 02/04/23 07:44 Assessment and Plan Assessment: Right lower lobe pulmonary adenocarcinoma status postoperative day #2 following a robotic-assisted right lower lobectomy and mediastinal lymph node dissection. Postoperative chest x-ray shows postsurgical changes and a right-sided chest tube in place. No sizable pneumothorax appreciated. There is minimal subcutaneous air along the right lower chest wall. Chest tube removed today 02/05/2023. Chronic obstructive pulmonary disease, normally maintained on a combination of Wixela and when necessary albuterol on an outpatient basis Acute hypoxemic respiratory failure, secondary to above, on 2 L/m nasal cannula Benign essential hypertension Osteoarthritis Former smoker, quitting 3 weeks ago, [id number] history Plan: The patient was seen and evaluated Chest x-ray and medications reviewed reviewed Chest tube removed by CT services Working well with the incentive spirometer Continue bronchodilators Follow up chest x-ray in a.m. Probable discharge in a.m. We'll continue to follow I have personally seen and examined the patient, performed the documentation and the assessment and plan as written. Number of minutes spent on the visit: 10.
[2023-02-06] MEDS: KETOROLAC 15 MG/ML 1 ML VIAL IVP SCH ×2 (00:45→06:53)
[2023-02-06] MEDS: HEPARIN SODIUM,PORCINE/PF 5,000 UNIT/0.5 ML SYRINGE SQ SCH ×2 (00:45→08:38)
[2023-02-06 06:13] VITALS: RESP 18
[2023-02-06] MEDS: PANTOPRAZOLE 40 MG TABLET PO SCH (06:53)
[2023-02-06] MEDS: HYDROcodone/APAP 10-325MG 1 EACH TAB PO PRN (06:54)
[2023-02-06 07:08] LABS: HCT 38.5 % (39.0-53.0); HGB 12.6 gm/dL (13.0-17.5); MCH 34.5 pg (25.0-35.0); MCHC 32.7 g/dL (31.0-37.0); MCV 105.4 fL (80.0-100.0); Macrocytosis Slight; Mean Platelet Volume 9.8; Platelet Count 234 k/uL (150-450); RBC 3.66 m/uL (4.30-5.90); RDW 12.1 % (11.5-15.5); WBC 10.7 k/uL (3.8-10.6)
[2023-02-06 07:20] LABS: African American GFR (CKD) >90 (>60 ml/min/1.73 sqM); Anion Gap 4 mmol/L; Blood Urea Nitrogen 7 mg/dL (9-20); Carbon Dioxide 28 mmol/L (22-30); Chloride 103 mmol/L (98-107); Glucose 117 mg/dL (74-99); Non-African American GFR(CKD) >90 (>60 ml/min/1.73 sqM); Potassium 4.5 mmol/L (3.5-5.1); Sodium 135 mmol/L (137-145)
[2023-02-06] MEDS: IPRATROPIUM-ALBUTEROL 3 ML NEB IH SCH (07:47)
[2023-02-06] MEDS: SYMBICORT 160-4.5 MCG INHALER INHALATION SCH (07:48)
[2023-02-06] MEDS: SENNOSIDES-DOCUSATE SODIUM 1 EACH TAB PO SCH (08:38)
[2023-02-06] MEDS: lisinopriL 10 MG TAB PO SCH (08:38)
[2023-02-06] MEDS: MULTIVITAMINS, THERA 1 EACH TAB PO SCH (08:38)
[2023-02-06] MEDS: THIAMINE 100 MG TAB PO SCH (08:38)
[2023-02-06] MEDS: FOLIC ACID 1 MG TAB PO SCH (08:38)
--- NOTE | 2023-02-06 09:30 | P.PN ---
Subjective Progress Note Date: 02/06/23 Principal diagnosis: Lung cancer, adenocarcinoma. History of previous tobacco dependence, COPD, hypertension, osteoarthritis, vertigo, daily EtOH use, occasional marijuana use POD #3 bronchoscopy, robotic-assisted right thoracoscopic surgery with right lower lobectomy, mediastinal lymph node dissection The patient was seen and examined sitting up in a recliner on the cardiac stepdown unit in no acute distress. States pain is mostly controlled with current medication regimen, denies shortness of breath. Remains in sinus rhythm, currently on room air with oxygen saturation in the mid 90s. Right pleural chest tube discontinued yesterday. Chest x-ray reviewed, stable. No other new concerns. Objective - Vital Signs Vital signs: Vital Signs Temp 98.2 F 02/06/23 04:00 Pulse 72 02/06/23 08:02 Resp 18 02/06/23 04:00 BP 148/74 02/06/23 04:00 Pulse Ox 97 02/06/23 07:48 FiO2 Intake & Output 02/05/23 02/06/23 02/06/23 18:59 06:59 18:59 Intake Total 0 Output Total 700 Balance -700 0 Intake: Oral 0 Output: Chest Tube Drainage 400 Chest Tube Right Lateral 400 Chest Urine 300 Other: Voiding Method Urinal Urinal # Voids 1 1 # Bowel Movements 0 - Exam CONSTITUTIONAL: Appears comfortable, cooperative, no acute distress RESPIRATORY: Lungs sounds diminished bilaterally. Respirations even, nonlabored. Currently on room air with oxygen saturation 97%. Able to achieve 2000 mL on incentive spirometry. Strong cough. CARDIOVASCULAR: S1, S2 present. Regular rate and rhythm, sinus rhythm on telemetry. Palpable peripheral pulses bilaterally. No edema present. No calf pain or tenderness noted. SCDs present. GASTROINTESTINAL: Abdomen soft, nontender, nondistended. Active bowel sounds present 4 quadrants. Tolerating diet. GENITOURINARY: Continues to void INTEGUMENTARY: Skin is warm and dry with evidence of good perfusion NEUROLOGIC: Cranial nerves II through XII intact MUSKULOSKELETAL: Able to move all extremities, strength equal bilaterally, gait normal PSYCHIATRIC: Alert and oriented to person place and time, appropriate affect, intact judgment and insight - Allied health notes Allied health notes reviewed: nursing - Labs CBC & Chem 7: 02/06/23 06:55 02/06/23 06:55 Labs: Abnormal Lab Results - Last 24 Hours (Table) 02/06/23 02/06/23 Range/Units 06:55 06:55 WBC 10.7 H (3.8-10.6) k/uL RBC 3.66 L (4.30-5.90) m/uL Hgb 12.6 L (13.0-17.5) gm/dL Hct 38.5 L (39.0-53.0) % MCV 105.4 H (80.0-100.0) fL Sodium 135 L (137-145) mmol/L BUN 7 L (9-20) mg/dL Glucose 117 H (74-99) mg/dL - Imaging and Cardiology Chest x-ray: image reviewed Assessment and Plan Assessment: Lung cancer, adenocarcinoma, status post bronchoscopy, robotic-assisted right thoracoscopic surgery with right lower lobectomy, mediastinal lymph node dissection Previous tobacco dependence COPD, preoperative FEV1 76% of predicted, DLCO 48% of predicted Hypertension Osteoarthritis Vertigo Daily EtOH use Occasional marijuana use Plan: Encourage incentive spirometry use 10 times every hour while awake. Bronchodilators per pulmonology Increase activity as tolerated, out of bed for all meals Pain control with current medication regimen Patient to discharge home today with follow up appointments made
[2023-02-06 09:44] VITALS: BP 162/80; PULSE 96; TEMP 97.5
--- NOTE | 2023-02-06 09:48 | P.DS ---
Providers Date of admission: 02/03/23 09:40 Expected date of discharge: 02/06/23 Attending physician: Ariel Gallego MD Consults: 02/03/23 17:42 Consult Physician Routine Consulting Provider: Lois Song Consult Reason/Comments: post lobectomy Do you want consulting provider notified?: Yes Primary care physician: [facility] Course: FINAL DIAGNOSIS: 1. Lung cancer, adenocarcinoma 2. Previous tobacco dependence 3. COPD, preoperative FEV1 76% of predicted, DLCO 48% of predicted 4. Hypertension 5. Osteoarthritis 6. Vertigo 7. Daily EtOH use 8. Occasional marijuana use PRINCIPAL PROCEDURE: 1. Bronchoscopy 2. Robotic-assisted right thoracoscopic surgery with right lower lobectomy 3. Mediastinal lymph node dissection HISTORY OF PRESENT ILLNESS: This is a 67-year-old gentleman who follows outpatient with Dr. Gonzales for pulmonology as well as the [facility] for primary care. Due to his smoking history he underwent CT of the chest ordered by his primary care physician which revealed a 1.5 cm nodule. Further workup included PET/CT scan as well as EBUS of the nodule by Dr. Gonzales revealing adenocarcinoma. The patient was referred to Dr. Gallego from cardiothoracic surgery. He was recommended to undergo robotic-assisted surgical right lower lobectomy. The usual perioperative course was discussed in detail with the patient and his family, all risks and benefits were explained, all questions were answered, and consent was obtained to proceed with surgery. The patient was scheduled for elective surgery at the earliest possible date after obtaining cardiac clearance. HOSPITAL COURSE: The patient was brought to the hospital on 02/03/23, taken to the preoperative area, prepared in the usual fashion, and subsequently taken to the operating room where Dr. Gallego performed robotic-assisted thoracoscopic right lower lobectomy with mediastinal lymph node dissection. Upon completion of surgery the patient was extubated and taken to the recovery room for further hemodynamic monitoring. He was eventually admitted to 3 S. cardiac stepdown unit for further recovery. He continued to recover without incident, chest tube was discontinued on postoperative day #2. Repeat chest x-ray was stable. His oxygen was titrated down, he was tolerating oral diet, his pain was controlled, and he was ready to be discharged to home on postoperative day #2. He received written and verbal instruction regarding his medications, activity restrictions, signs and symptoms requiring physician notification, and follow-up appointments. Patient Condition at Discharge: Stable Plan - Discharge Summary Discharge Rx Participant: Yes New Discharge Prescriptions: Continue HYDROcodone/APAP 10-325MG [[place] 10-325] 1 tab PO Q6HR PRN PRN Reason: Pain Unk Wixela 1 puff INHALATION BID lisinopriL [Zestril] 10 mg PO DAILY Discharge Medication List HYDROcodone/APAP 10-325MG [[place] 10-325] 1 tab PO Q6HR PRN 12/08/22 [History] Unk Wixela 1 puff INHALATION BID 12/08/22 [History] lisinopriL [Zestril] 10 mg PO DAILY 12/08/22 [History] Follow up Appointment(s)/Referral(s): Ariel Gallego MD [STAFF PHYSICIAN] - 02/25/23 2:00 pm Paula Gonzales MD [STAFF PHYSICIAN] - 02/11/23 10:30 am (Chest tube suture to be taken out by Dr. Gonzales, if unable to do so please come to surgeon's office after Dr. Gonzales's appointment for suture removal (surgeon's office is in [facility] behind the [facility])) [facility],Clinic [Primary Care Provider] - As Needed Activity/Diet/Wound Care/Special Instructions: DISCHARGE INSTRUCTIONS: 1. No driving for 2 weeks, or until physician gives their ok. 2. No lifting, pushing, or pulling more than 10 pounds for 2 weeks. The physician will advise of any restriction changes. 3. Continue pain control per as needed orders. Alternate acetaminophen (Tylenol) and ibuprofen (Motrin/Advil) for pain. 4. Continue with incentive spirometry and splinting until otherwise directed by the physician. 5. Leave chest tube dressing for 48 hours. After that, remove all dressings and shower daily. 6. Routine incision care. No powders, lotions, ointments on incisions. 7. Please call surgeon/PEARL PELLER for temp greater than 101 F or purulent drainage from incisions. 8. Smoking cessation counseling and program information provided. Quitting smoking is the most important step you can take to improve your health. For additional information and assistance to quit smoking, please call the [employer] tobacco quit line (4-732-NFWD-NOW/ ) or online: [email or web address] Discharge Disposition: HOME SELF-CARE
--- NOTE | 2023-02-06 09:53 | XR ---
EXAMINATION TYPE: XR chest 2V DATE OF EXAM: 02/06/2023 COMPARISON: 02/05/2023 HISTORY: Post lobectomy TECHNIQUE: Frontal and lateral views of the chest are obtained. FINDINGS: There has been interval removal of the right-sided chest tube is no pneumothorax. There is increasing but small right pleural effusion and elevation the right hemidiaphragm. The left lung is clear. The heart size is normal pulmonary vasculature is not congested. There is a small hiatal hernia. The osseous structures are intact IMPRESSION: 1. Interval removal of the right-sided chest tube without pneumothorax. 2. Small but increasing right pleural effusion. 3. Small hiatal hernia
--- NOTE | 2023-02-06 10:12 | P.PN ---
Subjective Progress Note Date: 02/06/23 I am seeing this patient in new consultation today 02/04/2023 status postoperative day #1 following a right lower lobectomy and mediastinal lymph node dissection. Patient is a 67-year-old white male with past medical history significant for recent diagnosis of right lower lobe adenocarcinoma, COPD, recent ex-smoker and over a 45 pack-year smoking history, hypertension, and osteoarthritis. [facility] He had a low-dose lung CT back in September, which showed a concerning 1.5 centimeter spiculated nodule in the posterior right mid lung. A follow-up PET scan demonstrated a right lower lobe 1.4 cm nodule with increased FDG uptake. No evidence of metastatic disease at that time. This was followed by a navigational bronchoscopy and biopsy of the nodule, on 12/10/2022, which was consistent with adenocarcinoma. In the absence of significant mediastinal lymphadenopathy, no mediastinal lymph node biopsies were obtained at that time. The patient was referred to cardiothoracic, who scheduled a right lower lobectomy yesterday. Preoperative PFT showed minimal airway obstruction with an FEV1 76% of predicted and a moderate to severely reduced DLCO at 48% of predicted. The patient underwent successful robotic-assisted right lower lobectomy and mediastinal lymph node dissection yesterday. He is currently sitting up in bed, on 2 L nasal cannula, in no acute distress. Right chest tube has 70 ML's of serosanguineous output. There is a minimal air leak observed with coughing. The chest tube is to suction. Postoperative chest x-ray shows postsurgical changes and a right- sided chest tube in place. No sizable pneumothorax appreciated. There is minimal subcutaneous air along the right lower chest wall. Incentive spirometer is at bedside, the patient achieves 750-1000 ML's with encouragement. Pain is reportedly well controlled. Preoperative labs were unremarkable. Vital signs are stable. Patient is being monitored on the cardiac stepdown unit. The patient is seen today 02/05/2023 in follow-up on the selective care unit. He is currently sitting up in a chair at the bedside. Awake and alert in no acute distress. Maintaining good O2 saturations in the 90s on room air. He's working well with his incentive spirometer. Chest x-ray revealed mild subsegmen jin atelectasis in the right mid and lower lobe. Right-sided chest tube in position. No evidence of pneumothorax. His chest tube was subsequently removed today. Lung and lymph node biopsy pathology is pending at is continued on DuoNeb inhalations, Symbicort. Heparin for DVT prophylaxis. The patient is seen today 02/06/2023 in follow-up on the selective care unit. He is awake and alert in no acute distress. Sitting up in a chair. Denies any worsening shortness of breath, cough or congestion. His surgical site pain is well controlled. Today's chest x-ray shows interval removal of the right-sided chest tube without pneumothorax. Small right pleural effusion. Small hiatal hernia. White count 10.7. Hemoglobin 12.6. MCV 105.4. Sodium 135. Potassium 4.5. Bicarb 28. BUN 7. Creatinine 0.70. Glucose 117. He continues working well with the incentive spirometer. Continued on DuoNeb inhalations, Symbicort. Heparin for DVT prophylaxis. Objective - Vital Signs Vital signs: Vital Signs Temp 97.5 F L 02/06/23 08:00 Pulse 72 02/06/23 08:02 Resp 18 02/06/23 08:00 BP 162/80 02/06/23 08:00 Pulse Ox 97 02/06/23 08:00 FiO2 Intake & Output 02/05/23 02/06/23 02/06/23 18:59 06:59 18:59 Intake Total 0 Output Total 700 Balance -700 0 Intake: Oral 0 Output: Chest Tube Drainage 400 Chest Tube Right Lateral 400 Chest Urine 300 Other: Voiding Method Urinal Urinal Urinal # Voids 1 1 # Bowel Movements 0 - Exam GENERAL EXAM: Alert, oriented 67-year-old male, on room air, comfortable in no apparent distress. HEAD: Normocephalic. EYES: Normal reaction of pupils, equal size. NOSE: Clear with pink turbinates. THROAT: No erythema or exudates. NECK: No masses, no JVD. CHEST: No chest wall deformity. Right-sided chest tube removed, dressing intact LUNGS: Equal air entry with scattered rhonchi of the right lung. CVS: S1 and S2 normal with no audible murmur, regular rhythm. ABDOMEN: No hepatosplenomegaly, normal bowel sounds, no guarding or rigidity. SPINE: No scoliosis or deformity SKIN: No rashes CENTRAL NERVOUS SYSTEM: No focal deficits, tone is normal in all 4 extremities. EXTREMITIES: There is no peripheral edema. No clubbing, no cyanosis. Peripheral pulses are intact. - Labs CBC & Chem 7: 02/06/23 06:55 02/06/23 06:55 Labs: Abnormal Lab Results - Last 24 Hours (Table) 02/06/23 02/06/23 Range/Units 06:55 06:55 WBC 10.7 H (3.8-10.6) k/uL RBC 3.66 L (4.30-5.90) m/uL Hgb 12.6 L (13.0-17.5) gm/dL Hct 38.5 L (39.0-53.0) % MCV 105.4 H (80.0-100.0) fL Sodium 135 L (137-145) mmol/L BUN 7 L (9-20) mg/dL Glucose 117 H (74-99) mg/dL Assessment and Plan Assessment: Right lower lobe pulmonary adenocarcinoma status postoperative day #3 following a robotic-assisted right lower lobectomy and mediastinal lymph node dissection. Postoperative chest x-ray shows postsurgical changes and a right-sided chest tube in place. No sizable pneumothorax appreciated. There is minimal subcutaneous air along the right lower chest wall. Chest tube removed 02/05/2023. Follow-up chest x-ray reveals no evidence of pneumothorax. Chronic obstructive pulmonary disease, normally maintained on a combination of Wixela and when necessary albuterol on an outpatient basis Acute hypoxemic respiratory failure, secondary to above, on 2 L/m nasal cannula Benign essential hypertension Osteoarthritis Former smoker, quitting 3 weeks ago, [id number] history Plan: The patient was seen and evaluated Chest x-ray, labs and medications reviewed reviewed Stable and on room air Working well with the incentive spirometer Home once cleared by CT services Follow-up in our office in 1 week I have personally seen and examined the patient, performed the documentation and the assessment and plan as written. Number of minutes spent on the visit: 10.
== END 2023-02-06 11:15 | disposition home or self-care (01) | DRG 163 ==
LOC: 2ORMAIN 09:40 → 3SCARD 17:27
PROVIDERS: ADMIT Thoracic Surgery (Cardiothoracic Vascular Surgery); ATTEND Thoracic Surgery (Cardiothoracic Vascular Surgery)
PROC: 0BJ08ZZ Inspection of Tracheobronchial Tree, Via Natural or Artificial Opening Endoscopic (ICD-10-PCS; principal; 2023-02-03 11:30)
PROC: 8E0W4CZ Robotic Assisted Procedure of Trunk Region, Percutaneous Endoscopic Approach (ICD-10-PCS; principal; 2023-02-03 11:30)
PROC: 07B74ZX Excision of Thorax Lymphatic, Percutaneous Endoscopic Approach, Diagnostic (ICD-10-PCS; principal; 2023-02-03 11:30)
PROC: 0BTF4ZZ Resection of Right Lower Lung Lobe, Percutaneous Endoscopic Approach (ICD-10-PCS; principal; 2023-02-03 11:30)
DX: C34.31 Malignant neoplasm of lower lobe, right bronchus or lung (principal); J96.01 Acute respiratory failure with hypoxia; J98.11 Atelectasis; J43.9 Emphysema, unspecified; F17.200 Nicotine dependence, unspecified, uncomplicated; Z28.310 Unvaccinated for COVID-19; I10 Essential (primary) hypertension; K44.9 Diaphragmatic hernia without obstruction or gangrene; R42 Dizziness and giddiness; M19.90 Unspecified osteoarthritis, unspecified site; Z79.51 Long term (current) use of inhaled steroids; Z79.899 Other long term (current) drug therapy; Z71.6 Tobacco abuse counseling
CPT/HCPCS: 64999; 71045; 71046; 80048; 85025; 85027; 86850; 86900; 86901; 88305; 88309; 88313; 88341; 88342; 94640; 94760

== ENCOUNTER → 2023-08-03 | Outpatient (CLI) | payer OTHER ==
[2023-08-03 10:37] LABS: African American GFR (CKD) >90 (>60 ml/min/1.73 sqM); Blood Urea Nitrogen 10 mg/dL (9-20); Non-African American GFR(CKD) >90 (>60 ml/min/1.73 sqM)
--- NOTE | 2023-08-03 13:05 | CT ---
EXAMINATION TYPE: CT chest w con DATE OF EXAM: 08/03/2023 COMPARISON: 12/10/2022 HISTORY: lung CA, f/u left lower lobectomy CT DLP: 137.3 mGycm Automated exposure control for dose reduction was used. TECHNIQUE: CT scan of the chest is performed with IV Contrast, patient injected with 100 mL of Isovue 370. MIP Images are created on CT scanner and reviewed. 3D reconstructed images are created on an independent workstation and reviewed. FINDINGS: Patient status post right lower lobe lobectomy for lung cancer. There is volume loss on the right. There is a stable 7.7 mm nodule in the left upper lobe. There is a stable tiny subpleural parenchymal nodule in the left lung base. No new or suspicious nodules seen. There is moderate emphysematous change throughout the lungs. There is no airspace consolidation. There is no pleural effusion or pneumothorax. The great vessels chest are normal is no mediastinal, hilar or axillary adenopathy. There is a large hiatal hernia. Limited scanning the upper abdomen reveals persistent thickening of the adrenal glands, left greater than right which are stable. There is no definite renal mass. There is a small sclerotic density in the left aspect of T4 which is stable. IMPRESSION: 1. Right lower lobe lobectomy with volume loss on the right. 2. Stable pulmonary nodule in the left lung as described above. 3. Moderate emphysematous changes. 4. no acute cardiopulmonary disease. 5. No new or suspicious lung mass or nodule . 6. No adenopathy within the mediastinum, hilum or axillary region. 7. Small stable sclerotic density in the left aspect of T4.
== END | disposition home or self-care (01) ==
LOC: RADCTMAIN 09:53
PROVIDERS: ATTEND Internal Medicine Critical Care Medicine
DX: C34.90 Malignant neoplasm of unspecified part of unspecified bronchus or lung (principal); J43.9 Emphysema, unspecified; J98.4 Other disorders of lung; R91.1 Solitary pulmonary nodule; Z90.2 Acquired absence of lung [part of]
CPT/HCPCS: 82565; 84520; 71260; 36415; Q9967

== ENCOUNTER → 2024-02-08 | Outpatient (CLI) | payer OTHER ==
[2024-02-08 09:24] LABS: African American GFR (CKD) >90 (>60 ml/min/1.73 sqM); Blood Urea Nitrogen 9 mg/dL (9-20); Non-African American GFR(CKD) >90 (>60 ml/min/1.73 sqM)
--- NOTE | 2024-02-08 16:13 | CT ---
EXAMINATION TYPE: CT chest w con CT DLP: 140.20 mGycm, Automated exposure control for dose reduction was used. DATE OF EXAM: 02/08/2024 9:51 AM COMPARISON: CT chest 08/03/2023, 12/10/2022, PET CT 10/23/2022 CLINICAL INDICATION:Male, 68 years old with history of C34.90 lung ca; PHH, Hx lung ca, partial RT lo bectomy, routine follow up TECHNIQUE: Multiple axial images were obtained through the chest following the administration of 100 cc of Isovue 300. . Coronal and sagittal reformats reviewed. FINDINGS: LUNGS/ PLEURA: No pneumothorax. Status post right lower lobectomy for cancer with volume loss. Mild c entrilobular emphysematous changes. Trace inferior right lower lobe pleural effusion redemonstrated. Stable 7 mm pulmonary nodule within the left upper lobe (series 4, image 27). Stable subpleural left lower lobe 3 mm pulmonary nodule (series 4, and 47). Stable punctate calcified granuloma within the anterior right upper lobe. New right upper lobe irregular opacity measuring 2.6 x 1.6 cm with adjacen t reticular opacities (series 4, image 14). Additional peripheral right midlung reticular peripheral opacities (series 4, image 32). Similar left apical pleural thickening with calcification. AIRWAY: Patent and unremarkable.. HEART: Size within normal limits. No pericardial effusion. MEDIASTINUM: Enlarging precarinal lymph node measuring 1.2 cm short axis, previously 1.0 cm (series 3 , 27). VASCULATURE: No aortic aneurysm. Mild atherosclerotic calcification of the aorta and its branches. M ild coronary artery calcifications. MUSCULOSKELETAL: No acute osseous abnormalities. Stable sclerotic focus within the left aspect of the T4 vertebral body. No new aggressive osseous lesions. SOFT TISSUES/LYMPH NODES: Unremarkable. LOWER NECK: No significant findings. UPPER ABDOMEN: Moderate size hiatal hernia redemonstrated. Similar thickening of the adrenal glands w ith left greater than right. IMPRESSION: 1. Postsurgical changes from right lower lobectomy. Enlarging precarinal lymph node. New right upper lobe irregular consolidation with stranding and reticular opacities with additional reticular opaciti es within the peripheral right midlung. Etiologies include infectious/inflammatory process however re currence/metastasis is not excluded. Consider further evaluation with PET/CT versus short-term follow -up CT. 2. Stable few pulmonary nodules. 3. Moderate COPD changes. 4. Moderate size hiatal hernia redemonstrated.
== END | disposition home or self-care (01) ==
LOC: RADCTMAIN 08:47
PROVIDERS: ATTEND Internal Medicine Critical Care Medicine
DX: C34.90 Malignant neoplasm of unspecified part of unspecified bronchus or lung (principal); J44.9 Chronic obstructive pulmonary disease, unspecified; K44.9 Diaphragmatic hernia without obstruction or gangrene
CPT/HCPCS: 82565; 84520; 71260; 36415; Q9967

== ENCOUNTER → 2024-07-13 | Outpatient (CLI) | payer OTHER ==
[2024-07-13 12:25] LABS: African American GFR (CKD) >90 (>60 ml/min/1.73 sqM); Blood Urea Nitrogen 9 mg/dL (9-20); Non-African American GFR(CKD) >90 (>60 ml/min/1.73 sqM)
--- NOTE | 2024-07-13 13:30 | CT ---
EXAMINATION TYPE: CT chest w con CT DLP: 148.5 mGycm, Automated exposure control for dose reduction was used. DATE OF EXAM: 07/13/2024 12:47 PM COMPARISON: Multiple CT chest most recent 02/08/2024, PET/CT 10/23/2022 CLINICAL INDICATION:Male, 69 years old with history of C34.90 Lung cancer; PHH, f/u lung ca TECHNIQUE: Multiple axial images were obtained through the chest following the administration of 100 cc of Isovue 300. . Coronal and sagittal reformats reviewed. FINDINGS: LUNGS/ PLEURA: No pneumothorax. Status post right lower lobectomy for cancer with volume loss. Mild t o moderate centrilobular emphysematous changes. Trace inferior right lower lobe pleural effusion rede monstrated. Stable 7 mm pulmonary nodule within the left upper lobe (series 4, image 29). Stable sub pleural left lower lobe 3 mm pulmonary nodule (series 4, image 50). Stable punctate calcified granulo ma within the anterior right upper lobe. More solid-appearing right upper lobe nodular opacity measur ing 2.1 x 1.4 cm (series 4, 16), previously measured 2.6 x 1.6 cm. Resolution of previously demonstra [place]ia [place] peripheral right midlung reticular peripheral opacities. No new pulmonary nodules. Similar left a pical pleural thickening with calcification. AIRWAY: Patent and unremarkable. HEART: Size within normal limits. No pericardial effusion. MEDIASTINUM: Decreased size of precarinal lymph node measuring 0.9 cm short axis, previously 1.2 cm ( series 3, image 28). No new adenopathy. VASCULATURE: No aortic aneurysm. Mild to moderate atherosclerotic calcification of the aorta and its branches. Mild coronary artery calcifications. MUSCULOSKELETAL: No acute osseous abnormalities. Stable sclerotic focus within the left aspect of the T4 vertebral body likely representing a benign bone island. No new aggressive osseous lesions. Multi level degenerative disc disease. Most pronounced involving the visualized lumbar spine at L2-L3. SOFT TISSUES/LYMPH NODES: Unremarkable. LOWER NECK: No significant findings. UPPER ABDOMEN: Moderate size hiatal hernia redemonstrated. Similar thickening of the adrenal glands w ith left greater than right. IMPRESSION: 1. Postsurgical changes from right lower lobectomy. More solid appearing right upper lobe nodular opa [place] measuring up to 2.1 cm and is concerning for recurrence/metastasis. Further evaluation with PET/ CT is recommended. 2. Decreased size of precarinal lymph node. No new adenopathy. 3. Other previously seen small pulmonary nodules are stable. No new pulmonary nodules. Resolution of previously demonstrated reticular opacities within the peripheral right midlung. 3. Mild to moderate COPD changes. 4. Moderate size hiatal hernia redemonstrated. [facility], , 07/13/2024 1:27 PM
== END | disposition home or self-care (01) ==
LOC: RADCTMAIN 11:46
PROVIDERS: ATTEND Internal Medicine Critical Care Medicine
DX: C34.91 Malignant neoplasm of unspecified part of right bronchus or lung (principal); J44.9 Chronic obstructive pulmonary disease, unspecified; K44.9 Diaphragmatic hernia without obstruction or gangrene; R91.8 Other nonspecific abnormal finding of lung field
CPT/HCPCS: 82565; 84520; 71260; 36415; Q9967

== ENCOUNTER → 2024-07-27 | Day surgery (SDC) | payer OTHER ==
[2024-07-26 10:17] VITALS: BMI 19.5
[~2024-07-27] MED LIST changes: -DEXAMETHASONE SOD PHOSPHATE 4 MG/ML 1 ML VIAL IV ONE; +GLYCOPYRROLATE 0.2 MG/ML 2 ML VIAL ONE; +HYDROmorphone 0.5 MG/0.5 ML SYRINGE IVP PRN; +MIDAZOLAM 2 MG/2 ML VIAL IV PRN; +MIDAZOLAM 2 MG/2 ML VIAL ONE; +NEOSTIGMINE 1 MG/ML 10 ML VIAL ONE; -ONDANSETRON 4 MG/2 ML VIAL IVP ONE; +PHENYLEPHRINE-0.9% NACL SYG 1,000 MCG/10 ML SYRINGE ONE; +PROPOFOL 10 MG/ML 20 ML VIAL IV ONE; +ROCURONIUM 10 MG/ML (5 ML VIAL) IV ONE; +SUCCINYLCHOLINE CHLORIDE 200 MG/10 ML VIAL IV ONE; -droPERidol 5 MG/2 ML VIAL IVP ONE; +fentaNYL (PF) 50 MCG/ML 2 ML AMP IVP PRN; +fentaNYL (PF) 50 MCG/ML 2 ML AMP ONE
--- NOTE | 2024-07-27 12:39 | CT ---
EXAMINATION TYPE: CT Chest wo ION protocol DATE OF EXAM: 07/27/2024 COMPARISON: 07/13/2024 CLINICAL INDICATION: Male, 69 years old with history of ION BRONCH; PHH, PREOP TECHNIQUE: CT scan of the thorax is performed without IV contrast. CT DLP: 200.[address] CTDI: mGy Automated exposure control for dose reduction was used. FINDINGS: There are marked emphysematous changes within upper lobe predominance. There is a stable 14 x 21 mm spiculated mass in the right upper lobe highly suspicious for neoplasm. There is a stable 7.7 mm spiculated nodule in the left upper lobe suspicious for neoplasm. There is a stable 3 to 4 mm subpleural parenchymal nodule in the left lower lobe. There is calcified pleural pa renchymal scarring in the left lung apex medially. There is volume loss in the right secondary to right lower lobe lobectomy. There is mild pleural scar ring in the right lung base. There is no mediastinal, hilar or axillary adenopathy. There is a large hiatal hernia with a partial intrathoracic stomach. Limited scanning through the upper abdomen reveals mild stable adrenal nodularity. No focal osseous lesions are seen. IMPRESSION: 1. 21 x 14 mm spiculated mass in the right upper lobe highly suspicious for neoplasm. 2. 7.7 mm spiculated nodule in the left upper lobe suspicious for neoplasm, possibly primary or metas tatic lesion. 3. Marked emphysematous changes with an upper lobe predominance. 4. right lung volume loss secondary to right lower lobe lobectomy. 5. Large hiatal hernia with partial intrathoracic stomach [facility], , 07/27/2024 12:37 PM
[2024-07-27] MEDS: IV FLUID CONTINUATION 1,000 ML IV ONE (12:53)
[2024-07-27 12:56] VITALS: TEMP 97.8
[2024-07-27] MEDS: LACTATED RINGERS 1,000 ML IV SCH (13:04)
[2024-07-27] MEDS: DEXAMETHASONE SOD PHOSPHATE 4 MG/ML 1 ML VIAL IV ONE (13:04)
[2024-07-27] MEDS: ONDANSETRON 4 MG/2 ML VIAL IVP ONE (13:04)
--- NOTE | 2024-07-27 15:32 | FL ---
EXAMINATION TYPE: FL bronchoscopy DATE OF EXAM: 07/27/2024 3:25 PM COMPARISON: Pre Operative Images if available both CT/MRI or plain film CLINICAL INDICATION: Male, 69 years old with history of Pulmonary Nodule; TECHNIQUE: FL bronchoscopy, multiple fluoroscopic images provided for procedure. Total fluoroscopy time: 53 seconds Total submitted images to PACS: 7 DAP: 1.9662 mGym2 Gycm2 uGym2 cGycm2 or equivalent. FINDINGS: ION bronchoscopy images demonstrate bronchoscope terminating in the lung. No immediate complications identified, no pneumothorax identified. IMPRESSION: 1. No evidence for intraoperative complication. 2. Please see the operative/procedural note for further details. [facility], Workstation: [facility], 07/27/2024 3:30 PM
--- NOTE | 2024-07-27 15:40 | P.PCN ---
Date of Procedure: 07/27/24 Operative Findings: Preoperative Diagnosis: Right upper lobe mass, 21 mm Left upper lobe pulmonary nodule, 7 mm in size Postoperative Diagnosis: Right upper lobe mass Left upper lobe pulmonary nodule, 7 mm in size Subcarinal lymphadenopathy Procedure(s) Performed: Flexible bronchoscopy Robotic-assisted bronchoscopy and addition to radial ultrasound evaluation of the right upper lobe mass Robotic-assisted transbronchial transbronchial needle aspirate, transbronchial biopsies, transbronchial brushing and bronchoalveolar lavage of the right upper lobe mass Robotic assisted transbronchial biopsy and transbronchial needle aspirate of the left upper lobe pulmonary nodule Endobronchial ultrasound Transbronchial needle aspirate of subcarinal station 7 lymph node Anesthesia: GETA Surgeon: Paula Gonzales Estimated Blood Loss (ml): 0 Pathology: other Condition: stable Disposition: same day Operative Findings: A physical exam was performed. Informed consent was obtained from the patient after explaining all the risks (pneumothorax, life threatening bleeding, infection and adverse effects due to medications), benefits and alternatives to the procedure which the patient appeared to understand and so stated. The patient was connected to the monitoring devices. General anesthesia was induced and the patient was intubated by anesthesia. A final timeout was performed and the procedure confirmed by the attending staff bronchoscopist. The bronchoscope was inserted and the airway examined. Airway examination shows that the distal trachea, Right upper lobe and lower lobe bronchi was all within normal limits. The patient has undergone a previous right middle lobe resection in the right middle lobe bronchus stump was within normal limits. The left mainstem bronchus is within normal limits. Examination of left lower lobe was within normal limits. The left upper lobe bronchus and the lingular segment was also patent within normal limits. The flexible bronchoscope was removed and the robotic bronchoscope was inserted. Registration was completed. I next guided the robotic bronchoscope using the navigation system into the right upper lobe mass and the navigation was done through the apical segment of the right upper lobe. Once in proper position, the bronchoscope was frozen. The radial EBUS probe was placed through the bronchoscope and confirmed abnormal u/s images vs normal lung. A needle was placed through the working channel and another fluoroscopic guidance, we sampled the area in the right upper lobe where the opacity was present. We then used a cloud biopsy pattern with ultrasound confirmation for 2 additional passes with the needle. Following that, a forceps were next introduced through working channel and extended the appropriate distance and 2 transbronchial biopsies were performed using fluoroscopic guidance. The u/s probe was then reinserted to confirm location. When confirmed this process was repeated for a total of 8 transbronchial biopsies. Following that, a total of 40 cc of saline was infused into the right upper lobe and approximately 10 cc of saline was aspirated and the bronchioloalveolar lavage was sent for cytologic evaluation. Following that, the Ion bronchoscope was directed to the left upper lobe. The catheter was directed towards the left upper lobe pulmonary nodule. A needle was placed through the working channel and another fluoroscopic guidance, we sampled the area in the left upper lobe where the opacity was present. We then used a cloud biopsy pattern with ultrasound confirmation for 6 additional passes with the needle. Following that, a forceps were next introduced through working channel and extended the appropriate distance and 2 transbronchial biopsies were performed using fluoroscopic guidance. The u/s probe was then reinserted to confirm location. When confirmed this process was repeated for a total of 4 transbronchial biopsies. Following that, I am bronchoscope was removed. The endobronchial ultrasound was inserted and a full evaluation of the mediastinal lymph nodes was done. Upon careful investigation with endobronchial ultrasound, a 10x7 mm subcarinal station 7 lymph node was identified. Using a 22-gauge position needle, transbronchial needle aspirate of the paratracheal station was done and a total of 5 passes was taken without any complications. Endobronchial ultrasound was removed. The rest of the mediastinal stations showed no significant pathologic mediastinal lymphadenopathy. Flex. bronchoscope was inserted and regular suctioning was done. At the completion of the procedure, no residual secretions or bloody material within the airway. The bronchoscope was removed. The patient was extubated. FINDINGS: 1. The airways appeared normal 2 Successful navigation, ultrasonographic identification, and biopsies of right upper lobe mass and biopsy of the left upper lobe pulmonary nodule 3. The the radial ultrasound view was concentric in the right upper lobe and eccentric in the left upper lobe. 4. Endobronchial ultrasound with biopsy of the subcarinal station 7 lymph node RECOMMENDATIONS: Await pathology and cytology results The referring physician will be alerted to the results when available. The patient was advised to follow up with the referring physician with the biopsy results Patient will be called with results.
--- NOTE | 2024-07-27 16:15 | XR ---
EXAMINATION TYPE: XR chest 1V DATE OF EXAM: 07/27/2024 4:09 PM COMPARISON: Chest radiographs from 02/06/2023 CLINICAL INDICATION: Male, 69 years old with history of post bx; TECHNIQUE: XR chest 1V Frontal view of the chest. FINDINGS: Lungs/Pleura: Biopsy changes right upper lung No evidence for pneumothorax. Streaky interstitial lung markings. There is flattening of the diaphragm with increased lucency of the lungs. No evidence of p neumothorax, pleural effusion or focal consolidation. Pulmonary vascularity: Unremarkable. Heart/mediastinum: Cardiomediastinal silhouette is unremarkable. Musculoskeletal: No acute osseous pathology. Other findings: None Lines/Tubes: IMPRESSION: 1. Postbiopsy changes of the right lung No evidence for pneumothorax. [facility], Workstation: [email or web address], 07/27/2024 4:13 PM
[2024-07-27 16:56] VITALS: BP 169/91; PULSE 78; RESP 16
== END ==
LOC: ORWHC2ENDO 12:17
PROVIDERS: ATTEND Internal Medicine Critical Care Medicine
DX: C34.31 Malignant neoplasm of lower lobe, right bronchus or lung (principal); I10 Essential (primary) hypertension; J44.9 Chronic obstructive pulmonary disease, unspecified; R59.1 Generalized enlarged lymph nodes; Z87.891 Personal history of nicotine dependence
CPT/HCPCS: 87798 ×3; 87496; 87498; 87529; 88108; 88305; 87502; 87634; 87070; 87205; 87116; 87102; 87206; 87635; 71045; 71250; 31628; 31623; 31624; 31652; J2250; J0330; J1100; J2710; J2405; J3010; J2704; J2371; J1596; S2900; 31629

== ENCOUNTER → 2024-08-04 | Outpatient (CLI) | payer OTHER ==
--- NOTE | 2024-08-06 01:50 | PE ---
EXAMINATION TYPE: PET CT fusion skull to thigh DATE OF EXAM: 08/04/2024 CLINICAL INDICATION:Male, 69 years old with history of R91.1 LUNG MASS; TECHNIQUE: Following the intravenous administration of 12.08 mCi of F-18 FDG, whole body images are performed from the skull base to the midthigh. Images are reviewed on the computer in the coronal, axial, and sagittal planes. Reconstructed rotating images are created on independent workstation and reviewed on the computer. A non-contrast CT is performed in conjunction with the PET scan. Glucose level 125 mg/dL CT DLP: 26.61 mGycm, Automated exposure control for dose reduction was used. COMPARISON: CT 07/27/2024, 07/13/2024, 02/08/2024, 08/03/2023, 12/10/2022, 09/16/2022, PET/CT 10/23/2022, MRI : None FINDINGS: Mediastinal SUV mean is 1.7. Hepatic parenchyma SUV mean is 1.8. SKULL BASE AND NECK: No suspicious radiotracer activity. CHEST, MEDIASTINUM, AND HILAR REGION: Redemonstration of 2.0 x 1.4 cm right upper lobe pulmonary nodule with a maximum SUV of 4.0 (series 3 , image 88). Redemonstration of left upper lobe 1 cm pulmonary nodule with a maximum SUV of 1.8 (series 3, image 1 08). ABDOMEN AND PELVIS: Long segment wall thickening of the ascending colon with radiotracer uptake with a maximum SUV of 10. 5. There is surrounding fat stranding identified. MUSCULOSKELETAL STRUCTURES: No suspicious radiotracer activity. OTHER CT: Atherosclerosis of the arterial vasculature including at the carotid bifurcations and coron andrés arteries. There is apical pleural scarring present. Trace right pleural effusion. Right lung volu me loss from right lower lobectomy. Mild centrilobular emphysema changes are present throughout the l ungs. Atherosclerotic calcification of the aorta and its branches. There is a moderate hiatal hernia present. Colonic diverticula are present. Prostatomegaly measuring 5.0 cm in transverse dimension. Pe lvic phleboliths. Osteoarthritic changes of the right hip. Multilevel degenerative changes of the vis ualized spine. IMPRESSION: 1. Right upper lobe 2.0 cm pulmonary nodule with mild FDG activity concerning for possible malignanc y. Correlate with bronchoscopy results. 2. Additional left upper lobe 1 cm pulmonary nodule with FDG activity at background levels. Continue d follow-up is recommended. 3. Long segment laboratory changes with FDG activity involving the ascending colon likely representi ng infectious/inflammatory colitis. Consider colonoscopy after treatment to rule out underlying malig shanthi. [facility], , 08/06/2024 1:47 AM
== END | disposition home or self-care (01) ==
LOC: RADPETMAIN 10:11
PROVIDERS: ATTEND Internal Medicine Critical Care Medicine
DX: R91.1 Solitary pulmonary nodule (principal); M16.11 Unilateral primary osteoarthritis, right hip; K57.30 Diverticulosis of large intestine without perforation or abscess without bleeding; I70.0 Atherosclerosis of aorta
CPT/HCPCS: 78815; A9552

== ENCOUNTER → 2024-11-14 | Outpatient (CLI) | payer OTHER ==
[2024-11-14 11:48] LABS: African American GFR (CKD) >90 (>60 ml/min/1.73 sqM); Blood Urea Nitrogen 8 mg/dL (9-20); Non-African American GFR(CKD) >90 (>60 ml/min/1.73 sqM)
--- NOTE | 2024-11-14 13:51 | CT ---
EXAMINATION TYPE: CT chest w con DATE OF EXAM: 11/14/2024 COMPARISON: Prior CT July 13, 2024 and older studies CLINICAL INDICATION: Male, 69 years old with history of R91.1 SOLITARY PULMONARY NODULE, LUNG NODULE TECHNIQUE: CT scan of the thorax is performed following with IV Contrast, patient injected with 80 M L mL of Isovue 300. CT DLP: 160.3 mGycm. Automated Exposure Control for Dose Reduction was Utilized. FINDINGS: LUNGS: Background moderate underlying emphysematous change greatest in the upper lungs is redemonstra [place]ia [place]. Stable moderate left apical pleural/parenchymal scarring. Fairly stable 2.2 x 1.3 cm spiculated suspicious right upper lobe pulmonary nodule axial image 15. Stable 6 to 7 mm lateral left midlung pu lmonary nodule image 30. Stable tiny right-sided pleural effusion. HEART: Size within normal limits. Moderate to severe coronary artery calcification redemonstrated. MEDIASTINUM: There are no greater than 1 cm hilar or mediastinal lymph nodes. No pericardial effusi on is seen. OTHER: Moderate size hiatal hernia again seen. Persistent avsilqjw-wp-nomwdr disc space narrowing wit h endplate sclerosis at the right L2-L3 level. Liver remains heterogeneously hypodense consistent wit h diffuse fatty infiltrative hepatocellular disease. IMPRESSION: Stable 2.2 x 1.3 cm suspicious spiculated right upper lobe pulmonary nodule. No new or en larging nodules or thoracic adenopathy seen. No significant change from most recent prior PET/CT. [facility], , 11/14/2024 1:48 PM
== END | disposition home or self-care (01) ==
LOC: RADCTMAIN 10:24
PROVIDERS: ATTEND Internal Medicine Critical Care Medicine
DX: R91.1 Solitary pulmonary nodule (principal)
CPT/HCPCS: 82565; 84520; 71260; 36415; Q9967